=== PATIENT | female | born 1985 | race Caucasian/White ===

== ENCOUNTER 2018-04-24 09:43 | Emergency (ER) | payer OTHER ==
[~2018-04-24] VITALS: Ht 165.1 cm; Wt 61.2 kg
[~2018-04-24 09:43] MED LIST: BENTYL 20 MG TA20 M1 PO; PROMETHAZINE12.5 M1 PO
[2018-04-24 10:07] LABS: ABSOLUTE LYMPHOCYTES 1.9 thou/uL (0.8-5.3); ABSOLUTE MONOCYTES 0.4 thou/uL (0.0-1.2); ABSOLUTE NEUTROPHILS 5.5 thou/uL (1.6-8.1); BASOPHILS 0.6 %; EOSINOPHILS 0.4 %; HEMATOCRIT 39.7 % (37.0-47.0); HEMOGLOBIN 13.3 gm/dL (12.0-15.0); LYMPHOCYTES 23.8 %; MCH 29.7 pg (26.0-34.0); MCHC 33.5 g/dL (28.0-37.0); MCV 88.8 fL (80.0-100.0); MONOCYTES 5.5 %; MPV 9.4 fl. (7.2-11.1); NUCLEATED RBCS 0 /100WBC; PLATELET COUNT* 270 thou/uL (150-400); POLYS 69.7 %; RBC 4.47 mil/uL (4.20-5.00); RDW-CV 14.6 % (10.5-14.5); WBC 7.9 thou/uL (4.0-11.0)
[2018-04-24 10:26] LABS: ALKALINE PHOSPHATASE 62 U/L (46-116); ANION GAP 9 mmol/L (7-16); BUN 16 mg/dL (7-18); CALCIUM 8.8 mg/dL (8.5-10.1); CHLORIDE 104 mmol/L (98-107); CO2 27 mmol/L (21-32); CREATININE 0.9 mg/dL (0.6-1.3); GLUCOSE 105 mg/dL (70-99); LIPASE 127 U/L (73-393); MAGNESIUM 1.8 mg/dL (1.8-2.4); POTASSIUM 3.6 mmol/L (3.5-5.1); SGOT 12 U/L (15-37); SGPT 16 U/L (30-65); SODIUM 140 mmol/L (136-145); TOTAL BILIRUBIN 0.2 mg/dL (<0.1-1.0); TOTAL PROTEIN 7.6 g/dL (6.4-8.2); TROPONIN-I LEVEL <0.06 ng/mL (<0.06)
[2018-04-24] MEDS ORDERED: FLEXERIL PO (11:17)
[2018-04-24] MEDS ORDERED: HYDROCODONE-AP1 EAC6 PO (11:17)
[2018-04-24 11:28] VITALS: BP 115/75
--- NOTE | 2018-04-25 14:08 | EKG ---
[place] [address] ELECTROCARDIOGRAM REPORT Name: KADEN GOMEZ Room: [facility]#: [id number] Admission: 04/24/18 Attend Phys: Discharge: 04/24/18 Date of : 83 Report #: [id number] THIS REPORT FOR: //name// 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 : 1985 Requested By: Abebe Salgado Order Number: [id number] MD: Jesús Schroeder Measurements Intervals Gap Rate: 82 P: 68 SD: 121 QRS: 86 QRSD: 100 T: 43 QT: 324 QTc: 379 Interpretive Statements Sinus arrhythmia Probable left atrial enlargement Low voltage, precordial leads RSR' in V1 or V2, probably normal variant Minimal ST depression ST elevation, consider lateral injury Artifact in lead(s) I,III,aVR,aVL,aVF,V1,V2 and baseline wander in lead(s) V1,V3,V5 No previous ECG available for comparison Electronically Signed On 04-25-2018 14:08:27 POWER [employer]OL REPAIR TECHNICIAN by Jesús Schroeder [email or web address] <ELECTRONICALLY SIGNED> By: Jesús Schroeder MD, FACC 04/25/18 1408 [id number] [id number] Jesús Schroeder MD, [facility] /EPI
== END 2018-04-24 11:29 | disposition home or self-care (01) ==
LOC: M.ERS 09:43
PROVIDERS: Emergency Medicine Emergency Medical Services
DX: R07.89 Other chest pain (principal); F17.210 Nicotine dependence, cigarettes, uncomplicated; I10 Essential (primary) hypertension; E78.00 Pure hypercholesterolemia, unspecified; E11.9 Type 2 diabetes mellitus without complications